=== PATIENT | female | born 1955 | race Caucasian/White ===

== ENCOUNTER 2018-01-21 06:25 | Day surgery (SDC) | payer MEDICAID ==
[~2018-01-21] VITALS: Ht 157.5 cm; Wt 65.5 kg
[2018-01-21] MEDS ORDERED: BECL10.62 IH (07:00)
[2018-01-21] MEDS ORDERED: SIMV-260 PO (07:00)
[2018-01-21] MEDS ORDERED: LEVO500 PO (07:00)
[2018-01-21] MEDS ORDERED: SERT100T12 PO (07:00)
[2018-01-21] MEDS ORDERED: MONT10TA21 PO (07:00)
[2018-01-21] MEDS ORDERED: LORA10TA7 PO (07:00)
[2018-01-21] MEDS ORDERED: PRED10 PO (07:00)
[2018-01-21] MEDS ORDERED: SODIUM CHLORIDE 0.9% 1,000 ML IV ONE ×2 (07:00→07:14)
[2018-01-21] MEDS ORDERED: MIDAZOLAM HCL 2 MG/2 ML VIAL ONE (07:43)
[2018-01-21] MEDS ORDERED: FentaNYL CITRATE-PF 100 MCG/2 ML VIAL ONE (07:43)
[2018-01-21] MEDS ORDERED: MethylPREDNISolone SOD SUCC 125 MG/2 ML VIAL ONE (08:58)
[2018-01-21] MEDS ORDERED: MethylPREDNISolone SOD SUCC 125 MG/2 ML VIAL IVP ONE (09:00)
[2018-01-21] MEDS ORDERED: BENZOCAINE 20% 50 MCG/SPRAY 57 GM TP ONE (12:00)
[2018-01-21] MEDS ORDERED: ALBUTEROL SULFATE 2.5 MG/0.5 ML NEB SOLUTION NEB ONE (12:00)
[2018-01-21] MEDS ORDERED: LIDOCAINE 2% 30 ML JELLY TP ONE (12:00)
[2018-01-21] MEDS ORDERED: OXYGEN THERAPY IH SCH (20:00)
== END 2018-01-21 10:45 | disposition home or self-care (01) ==
LOC: SURGERY 06:25
PROVIDERS: ATTEND Internal Medicine Critical Care Medicine
DX: J38.4 Edema of larynx (principal); B37.0 Candidal stomatitis; J84.111 Idiopathic interstitial pneumonia, not otherwise specified; J98.09 Other diseases of bronchus, not elsewhere classified; J98.8 Other specified respiratory disorders; J45.998 Other asthma; M19.90 Unspecified osteoarthritis, unspecified site; E78.00 Pure hypercholesterolemia, unspecified; E03.9 Hypothyroidism, unspecified; F32.9 Major depressive disorder, single episode, unspecified; Z88.1 Allergy status to other antibiotic agents; Z87.01 Personal history of pneumonia (recurrent); Z79.2 Long term (current) use of antibiotics; Z79.899 Other long term (current) drug therapy
CPT/HCPCS: 31623; 31624; 71045; 87015; 87070; 87205; 87206; 87220; 88108; 88312; J2250; J2930; J3010; J7030